=== PATIENT | male | born 1960 | race African-American/Black ===

== ENCOUNTER → 2016-05-22 | Outpatient (CLI) | payer OTHER | END | disposition home or self-care (01) | LOC: LAB 12:45 | PROVIDERS: ATTEND Internal Medicine Cardiovascular Disease | DX: I10 Essential (primary) hypertension (principal) | CPT/HCPCS: 36415; 82465; 86141 ==

== ENCOUNTER 2016-10-10 17:07 | Emergency (ER) | payer OTHER ==
[~2016-10-10] VITALS: Ht 180.3 cm; Wt 113.4 kg
[2016-10-10 17:08] VITALS: BP 78/47
[2016-10-10] MEDS ORDERED: GLUCAGON,HUMAN RECOMBINANT 1 MG/ML VIAL. IV ONE (17:30)
[2016-10-10] MEDS ORDERED: IV NORMAL SALINE 1000ML BAG 1,000 ML IV ONE (17:30)
[2016-10-10 17:50] LABS: BASO % 1 % (0-3); EOS % 4 % (0-3); HEMATOCRIT 44.8 % (39.0-53.0); HEMOGLOBIN 14.5 g/dL (13.0-17.5); LYMPH # 1.8 x10^3/uL (1.0-4.8); LYMPH % 25 % (24-48); MEAN CORPUSCULAR HEMOGLOBIN 29 pg (25-35); MEAN CORPUSCULAR HGB CONC 32 g/dL (31-37); MEAN CORPUSCULAR VOLUME 89 fL (79-100); MONO % 13 % (0-9); NEUT % 57 % (31-73); PLATELET COUNT 193 x10^3/uL (140-400); RED BLOOD COUNT 5.06 x10^6/uL (4.30-5.70); RED CELL DISTRIBUTION WIDTH 14.3 % (11.5-14.5)
[2016-10-10 17:53] LABS: INR 1.1 (0.8-1.1); PROTHROMBIN TIME PATIENT 13.8 SEC (11.7-14.0)
[2016-10-10 17:59] LABS: CALCIUM 9.3 mg/dL (8.5-10.1); GFR 42.3
[2016-10-10 18:04] LABS: ALBUMIN 3.6 g/dL (3.4-5.0); ALBUMIN/GLOBULIN RATIO 0.8 (1.0-1.7); TOTAL PROTEIN 8.2 g/dL (6.4-8.2)
[2016-10-10 18:06] LABS: ETHANOL < 10 mg/dL (0-10)
--- NOTE | 2016-10-10 18:30 | RAD ---
Indication: Headache. Axial imaging through the brain was performed without contrast One or more of the following individualized dose reduction techniques were utilized for this examination: 1. Automated exposure control 2. Adjustment of the mA and/or kV according to patient size 3. Use of iterative reconstruction technique Comparison is made with prior head CT from 02/07/2010. The ventricles and sulci are within normal limits. No sulcal effacement, midline shift or hemorrhage is detected. The cisterns are patent. The visualized paranasal sinuses are clear. IMPRESSION: No acute intracranial process is detected. Electronically signed by: Danie Das MD (10/10/2016 6:27 PM)
[2016-10-10] MEDS ORDERED: IV NORMAL SALINE 1000ML BAG 1,000 ML IV SCH (19:13)
[2016-10-10] MEDS ORDERED: ONDANSETRON PF 4 MG/2 ML VIAL. IV PRN (19:15)
[2016-10-10] MEDS ORDERED: MORPHINE SULFATE 2 MG/ML DISP.SYRIN. IV PRN (19:15)
[2016-10-10] MEDS ORDERED: ACETAMINOPHEN 325 MG TABLET. PO PRN (19:15)
--- NOTE | 2016-10-10 20:51 | PHYS DOC ---
Past Medical History Past Medical History: Unknown Additional Past Medical Histor: pt is a poor historian Alcohol Use: Occasionally Drug Use: Cocaine Adult General Chief Complaint Chief Complaint: HYPOTENSION HPI HPI Patient is a 56 year old male who presents with altered mental status. The patient is a poor historian; the majority of his complaints are related to chronic numbness & tingling to left upper extremity for which he recently underwent imaging ordered by his PCP. However he has garbled speech and is more confused than usual. He states he didn't take any medications for 3 days and today doubled up on all his medications. Unsure exactly what medications he takes but he thinks he is on carvedilol. He believes that he expresses syncopal episode at home. Denies headache, chest pain, palpitations, shortness of breath , abdominal pain, vomiting, extremity weakness. Review of Systems Review of Systems Constitutional: Denies fever or chills, reports syncope. Eyes: Denies change in visual acuity HENT: Denies nasal congestion or sore throat Respiratory: Denies cough or shortness of breath Cardiovascular: Denies chest pain or edema GI: Denies abdominal pain, nausea, vomiting, bloody stools or diarrhea : Denies dysuria or hematuria Musculoskeletal: Denies back pain or joint pain Integument: Denies rash or skin lesions Neurologic: Denies headache, reports chronic numbness/tingling to LUE Current Medications Current Medications Current Medications Medications (Trade) Dose Ordered Sig/Nickolas Start Time Stop Time Status Last Admin Dose Admin Acetaminophen (Tylenol) 650 mg PRN Q4HRS PRN 10/10/16 19:15 10/11/16 19:14 Glucagon (Glucagen) 5 mg 1X ONCE 10/10/16 17:30 10/10/16 17:31 DC Morphine Sulfate 2 mg PRN Q2HR PRN 10/10/16 19:15 10/11/16 19:14 Ondansetron HCl (Zofran) 4 mg PRN Q8HRS PRN 10/10/16 19:15 10/11/16 19:14 Sodium Chloride 1,000 ml @ 125 mls/hr Q8H 10/10/16 19:13 10/11/16 19:12 Allergies Allergies Allergies Coded Allergies Type Severity Reaction Last Updated Verified Unable to Assess 10/10/16 No Physical Exam Physical Exam Constitutional: obese, no acute distress, non-toxic appearance. HENT: Normocephalic, atraumatic, bilateral external ears normal, oropharynx moist, nose normal. Eyes: PERRLA, EOMI, conjunctiva normal, no discharge. Neck: supple, no stridor. no midline c-spine tenderness, no nuchal rigidity. Cardiovascular: RRR, no murmurs, no edema. Lungs & Thorax: LCTAB, no wheezing, no respiratory distress. Abdomen: soft, nontender, nondistended. Skin: Warm, dry, no erythema, no rash. Back: No spinal tenderness or step offs, no CVA tenderness Extremities: No tenderness, no edema. Neurologic: Alert and oriented X 3, speech is garbled & rambling but generally appropriate responses, CN2-12 grossly intact, symmetric strength/sensation to UE & LE with exception of decreased sensation to light touch to the LUE, poor effort with all neuro exam, no focal deficits noted. Psychologic: Affect normal, judgement normal, mood normal. Current Patient Data Vital Signs Vital Signs Date Time Temp Pulse Resp B/P (MAP) Pulse Ox O2 Delivery O2 Flow Rate FiO2 10/10/16 17:08 98.4 64 18 78/47 (57) 94 Room Air 98.4 Lab Values Laboratory Tests Test 10/10/16 17:20 10/10/16 18:27 White Blood Count 7.0 x10^3/uL (4.0-11.0) Red Blood Count 5.06 x10^6/uL (4.30-5.70) Hemoglobin 14.5 g/dL (13.0-17.5) Hematocrit 44.8 % (39.0-53.0) Mean Corpuscular Volume 89 fL (79-100) Mean Corpuscular Hemoglobin 29 pg (25-35) Mean Corpuscular Hemoglobin Concent 32 g/dL (31-37) Red Cell Distribution Width 14.3 % (11.5-14.5) Platelet Count 193 x10^3/uL (140-400) Neutrophils (%) (Auto) 57 % (31-73) Lymphocytes (%) (Auto) 25 % (24-48) Monocytes (%) (Auto) 13 % (0-9) H Eosinophils (%) (Auto) 4 % (0-3) H Basophils (%) (Auto) 1 % (0-3) Neutrophils # (Auto) 4.0 x10^3uL (1.8-7.7) Lymphocytes # (Auto) 1.8 x10^3/uL (1.0-4.8) Monocytes # (Auto) 0.9 x10^3/uL (0.0-1.1) Eosinophils # (Auto) 0.3 x10^3/uL (0.0-0.7) Basophils # (Auto) 0.0 x10^3/uL (0.0-0.2) Prothrombin Time 13.8 SEC (11.7-14.0) Prothrombin Time INR 1.1 (0.8-1.1) PTT 26 SEC (24-38) Sodium Level 138 mmol/L (136-145) Potassium Level 4.0 mmol/L (3.5-5.1) Chloride Level 101 mmol/L (98-107) Carbon Dioxide Level 29 mmol/L (21-32) Anion Gap 8 (6-14) Blood Urea Nitrogen 16 mg/dL (8-26) Creatinine 2.0 mg/dL (0.7-1.3) H Estimated GFR (Cockcroft-Gault) 42.3 BUN/Creatinine Ratio 8 (6-20) Glucose Level 136 mg/dL (70-99) H Lactic Acid Level 2.1 mmol/L (0.4-2.0) H Calcium Level 9.3 mg/dL (8.5-10.1) Total Bilirubin 1.0 mg/dL (0.2-1.0) Aspartate Amino Transferase (AST) 27 U/L (15-37) Alanine Aminotransferase (ALT) 27 U/L (16-63) Alkaline Phosphatase 70 U/L (46-116) Troponin I Quantitative 0.035 ng/mL (0.000-0.055) YE-Anj-J-Type Natriuretic Peptide 160 pg/mL (0-124) H Total Protein 8.2 g/dL (6.4-8.2) Albumin 3.6 g/dL (3.4-5.0) Albumin/Globulin Ratio 0.8 (1.0-1.7) L Lipase 106 U/L (73-393) Thyroid Stimulating Hormone (TSH) 2.323 uIU/mL (0.358-3.74) Salicylates Level < 2.8 mg/dL (2.8-20.0) L Salicylate Last Dose Date Salicylate Last Dose Time Acetaminophen Level < 2 mcg/ml (10-30) L Acetaminophen Last Dose Date Acetaminophen Last Dose Time Ethyl Alcohol Level < 10 mg/dL (0-10) Glucose (Fingerstick) 102 mg/dL (70-99) H Laboratory Tests 10/10/16 17:20 Laboratory Tests 10/10/16 17:20 EKG EKG interpreted by me: NSR rate 61, no ST elevation, T waves inverted without depression in leads 1, 2, aVL, aVF, V4-V5, [place] interval prolonged 262 ms, no ectopy.[] Radiology/Procedures Radiology/Procedures PROCEDURE: CT HEAD WO CONTRAST Indication: Headache. Axial imaging through the brain was performed without contrast One or more of the following individualized dose reduction techniques were utilized for this examination: 1. Automated exposure control 2. Adjustment of the mA and/or kV according to patient size 3. Use of iterative reconstruction technique Comparison is made with prior head CT from 02/07/2010. The ventricles and sulci are within normal limits. No sulcal effacement, midline shift or hemorrhage is detected. The cisterns are patent. The visualized paranasal sinuses are clear. IMPRESSION: No acute intracranial process is detected. Electronically signed by: Danie Das MD (10/10/2016 6:27 PM) DICTATED and SIGNED BY: DANIE DAS MD DATE: 10/10/16 1826 CXR: interpreted by me: cardiomegaly, no infiltrate, no pneumothorax.[] Course & Med Decision Making Course & Med Decision Making Pertinent Labs and Imaging studies reviewed. (See chart for details) The patient presents with altered mental status, found to be hypotensive when EMS arrived. Gave IV fluids here and his blood pressure improved. Initially there was some concern of a palomo overdose and I ordered glucagon but it had not been given because it had to be sent up from the pharmacy. His blood pressure improved to 100s/60s just with fluids and glucagon was not administered. Obtained labs, EKG, chest x-ray, head CT. No acute abnormalities were identified but I was concerned about his hypotension with possible occult infection or overdose. Recommended admission to the hospital for further evaluation and treatment. Initially the patient agreed but then he decided he needed to attend to some tasks at home and didn't want to be admitted. I did think he was confused but he was able to answer all questions appropriately and had a plan to get home with a family member who was driving up to the hospital. I did not have any reason to keep him against his wishes even though I strongly recommended that he stay for further evaluation. We discussed risks of leaving which include worsening condition, undiagnosed condition, possibly . He voiced understanding and still preferred to sign out AGAINST MEDICAL ADVICE. I had arty discussed with Dr. Boss who agreed to admit to inpatient status. I updated him that the patient was leaving AGAINST MEDICAL ADVICE. He was in stable condition at time of departure from the emergency department. [] Dragon Disclaimer Dragon Disclaimer This electronic medical record was generated, in whole or in part, using a voice recognition dictation system. Departure Departure Impression: Primary Impression: Hypotension Additional Impressions: Altered mental status Slurred speech Lactic acidosis Disposition: 07 AGAINST MEDICAL ADVICE Condition: STABLE Problem Qualifiers WILLIAM ANG MD Oct 10, 2016 20:51
--- NOTE | 2016-10-11 07:53 | RAD ---
Indication: Hypotensive. Time of exam 1748 hours. Comparison is made with prior chest from 02/07/2010. The heart appears mildly enlarged but stable. No infiltrate or failure is seen. No effusion or pneumothorax is identified. Impression: Stable chest. No acute feature is detected.
--- NOTE | 2016-10-11 11:30 | EKG ---
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
== END 2016-10-10 19:38 | disposition left against medical advice (07) ==
LOC: ER 17:07
DX: R41.82 Altered mental status, unspecified (principal); R47.81 Slurred speech; E87.2 Acidosis; R41.0 Disorientation, unspecified; R20.0 Anesthesia of skin; I95.9 Hypotension, unspecified; F14.10 Cocaine abuse, uncomplicated
CPT/HCPCS: 36415; 70450; 71010; 80053; 80320; 82962; 83605; 83690; 83880; 84443; 84484; 85027; 85610; 85730; 87040; 87205; 93005; 96360; 99285; G0480; J7030; 80329

== ENCOUNTER 2016-10-12 15:04 | Emergency (ER) | payer OTHER ==
[~2016-10-12] VITALS: Ht 172.7 cm; Wt 154.2 kg
[2016-10-12 15:46] LABS: BASO # 0.1 x10^3/uL (0.0-0.2); BASO % 1 % (0-3); EOS % 6 % (0-3); HEMATOCRIT 46.5 % (39.0-53.0); LYMPH # 1.7 x10^3/uL (1.0-4.8); LYMPH % 27 % (24-48); MEAN CORPUSCULAR HEMOGLOBIN 29 pg (25-35); MEAN CORPUSCULAR HGB CONC 32 g/dL (31-37); MEAN CORPUSCULAR VOLUME 89 fL (79-100); MONO % 12 % (0-9); NEUT % 55 % (31-73); PLATELET COUNT 191 x10^3/uL (140-400); RED BLOOD COUNT 5.23 x10^6/uL (4.30-5.70); RED CELL DISTRIBUTION WIDTH 14.8 % (11.5-14.5); WHITE BLOOD COUNT 6.4 x10^3/uL (4.0-11.0)
--- NOTE | 2016-10-12 15:49 | PHYS DOC ---
Past Medical History Past Medical History: High Cholesterol, Hypertension, Unknown Additional Past Medical Histor: borderline diabetic Past Surgical History: Other Additional Past Surgical Histo: neck surgery Additional Information: 05/13 ppd Alcohol Use: Occasionally Drug Use: Cocaine Adult General Chief Complaint Chief Complaint: ABNORMAL LABS [facility] Patient is a 56 year old male presenting to the emergency department for evaluation of abnormal labs that were drawn 2 days ago. Patient was being seen for hypotension diaphoresis and syncope. He was quite hypotensive Wednesday but was given fluids and evaluated and patient was recommended to be admitted to the hospital but he signed out against medical advise. Yesterday blood cultures came back positive in 2 for sats he had gram-negative rods and he was called and told to come back to the emergency department. Patient did not come to the emergency department yesterday as he said that he had to take care of his dogs. Patient is returning today and says that he feels well with no pain shortness of breath cough dysuria or rash. He says that he has not been taking any of his medications which she does not know what any of them are but he says that he does take a large amount of medications but has skipped as he thinks he may have taken too much 2 days ago. He says that his primary care provider is Dr. Cabezas. He is in no obvious distress with normal vital signs. Review of Systems Review of Systems Constitutional: Denies fever or chills [] Eyes: Denies change in visual acuity, redness, or eye pain [] HENT: Denies nasal congestion or sore throat [] Respiratory: Denies cough or shortness of breath [] Cardiovascular: No additional information not addressed in [facility] [] GI: Denies abdominal pain, nausea, vomiting, bloody stools or diarrhea [] : Denies dysuria or hematuria [] Musculoskeletal: Denies back pain or joint pain [] Integument: Denies rash or skin lesions [] Neurologic: Denies headache, focal weakness or sensory changes [] Allergies Allergies Allergies Coded Allergies Type Severity Reaction Last Updated Verified Unable to Assess 10/10/16 No Physical Exam Physical Exam Constitutional: Well developed, well nourished, no acute distress, non-toxic appearance. [] HENT: Normocephalic, atraumatic, bilateral external ears normal, oropharynx moist, no oral exudates, nose normal. [] Eyes: PERRLA, EOMI, conjunctiva normal, no discharge. [] Neck: Normal range of motion, no tenderness, supple, no stridor. [] Cardiovascular:Heart rate regular rhythm, no murmur [] Lungs & Thorax: Bilateral breath sounds clear to auscultation [] Abdomen: Bowel sounds normal, soft, no tenderness, no masses, no pulsatile masses. [] Skin: Warm, dry, no erythema, no rash. [] Back: No tenderness, no CVA tenderness. [] Extremities: No tenderness, no cyanosis, no clubbing, ROM intact, no edema. [] Neurologic: Alert and oriented X 3, normal motor function, normal sensory function, no focal deficits noted. [] Current Patient Data Vital Signs Vital Signs Date Time Temp Pulse Resp B/P (MAP) Pulse Ox O2 Delivery O2 Flow Rate FiO2 10/12/16 15:18 98.8 84 16 146/67 (93) 94 98.8 Lab Values Laboratory Tests Test 10/12/16 15:35 10/12/16 15:45 White Blood Count 6.4 x10^3/uL (4.0-11.0) Red Blood Count 5.23 x10^6/uL (4.30-5.70) Hemoglobin 15.0 g/dL (13.0-17.5) Hematocrit 46.5 % (39.0-53.0) Mean Corpuscular Volume 89 fL (79-100) Mean Corpuscular Hemoglobin 29 pg (25-35) Mean Corpuscular Hemoglobin Concent 32 g/dL (31-37) Red Cell Distribution Width 14.8 % (11.5-14.5) H Platelet Count 191 x10^3/uL (140-400) Neutrophils (%) (Auto) 55 % (31-73) Lymphocytes (%) (Auto) 27 % (24-48) Monocytes (%) (Auto) 12 % (0-9) H Eosinophils (%) (Auto) 6 % (0-3) H Basophils (%) (Auto) 1 % (0-3) Neutrophils # (Auto) 3.5 x10^3uL (1.8-7.7) Lymphocytes # (Auto) 1.7 x10^3/uL (1.0-4.8) Monocytes # (Auto) 0.7 x10^3/uL (0.0-1.1) Eosinophils # (Auto) 0.4 x10^3/uL (0.0-0.7) Basophils # (Auto) 0.1 x10^3/uL (0.0-0.2) Prothrombin Time 13.2 SEC (11.7-14.0) Prothrombin Time INR 1.1 (0.8-1.1) PTT 38 SEC (24-38) Sodium Level 143 mmol/L (136-145) Potassium Level 4.1 mmol/L (3.5-5.1) Chloride Level 108 mmol/L (98-107) H Carbon Dioxide Level 30 mmol/L (21-32) Anion Gap 5 (6-14) L Blood Urea Nitrogen 16 mg/dL (8-26) Creatinine 1.2 mg/dL (0.7-1.3) Estimated GFR (Cockcroft-Gault) 76.3 BUN/Creatinine Ratio 13 (6-20) Glucose Level 156 mg/dL (70-99) H Lactic Acid Level 1.4 mmol/L (0.4-2.0) Calcium Level 9.0 mg/dL (8.5-10.1) Magnesium Level 2.0 mg/dL (1.8-2.4) Total Bilirubin 0.3 mg/dL (0.2-1.0) Aspartate Amino Transferase (AST) 24 U/L (15-37) Alanine Aminotransferase (ALT) 27 U/L (16-63) Alkaline Phosphatase 65 U/L (46-116) Troponin I Quantitative 0.029 ng/mL (0.000-0.055) ED-Von-F-Type Natriuretic Peptide 131 pg/mL (0-124) H Total Protein 7.9 g/dL (6.4-8.2) Albumin 3.2 g/dL (3.4-5.0) L Albumin/Globulin Ratio 0.7 (1.0-1.7) L Lipase 151 U/L (73-393) Urine Collection Type Unknown Urine Color Yellow Urine Clarity Clear Urine pH 5.5 Urine Specific [place] 1.025 Urine Protein Negative mg/dL (NEG-TRACE) Urine Glucose (UA) 500 mg/dL (NEG) Urine Ketones (Stick) Negative mg/dL (NEG) Urine Blood Negative (NEG) Urine Nitrite Negative (NEG) Urine Bilirubin Negative (NEG) Urine Urobilinogen Dipstick 1.0 mg/dL (0.2 mg/dL) Urine Leukocyte Esterase Negative (NEG) Urine RBC 0 /HPF (0-2) Urine WBC 1-4 /HPF (0-4) Urine Squamous Epithelial Cells Few /LPF Urine Amorphous Sediment Present /HPF Urine Bacteria Few /HPF (0-FEW) Urine Hyaline Casts Few /HPF Urine Mucus Slight /LPF Urine Opiates Screen Neg (NEG) Urine Methadone Screen Neg (NEG) Urine Barbiturates Neg (NEG) Urine Phencyclidine Screen Neg (NEG) Urine Amphetamine/Methamphetamine Neg (NEG) Urine Benzodiazepines Screen Neg (NEG) Urine Cocaine Screen Pos (NEG) Urine Cannabinoids Screen Neg (NEG) Urine Ethyl Alcohol Neg (NEG) Laboratory Tests 10/12/16 15:35 Laboratory Tests 10/12/16 15:35 EKG EKG [] Radiology/Procedures Radiology/Procedures Portable chest, 10/12/2016: History: Fever Comparison is made to a study from 10/10/2016. The heart is at the upper limits of normal in size. The pulmonary vascularity is normal. No pulmonary infiltrate is seen. There is no evidence of pleural fluid. IMPRESSION: No acute cardiopulmonary abnormality is detected. DICTATED and SIGNED BY: FRANCIE LEGER MD DATE: 10/12/16 1002 Course & Med Decision Making Course & Med Decision Making Patient presenting to the emergency department for evaluation of abnormal blood culture results have her patient looks quite well with normal vital signs benign labs and he feels well and is wanting to go home. I tried on several occasions to get a hold of his PCP and/or someone who is covering for him however despite 2 hours of efforts were unsuccessful. I spoke to the hospitalist on-call and she stated that there is no indication to admit patient. I will give the patient a dose of IV Rocephin here and send him home on Levaquin and have him follow with his primary care provider tomorrow or the next day and have him come back to the ER sooner with any worsening symptoms. Patient aware and agreeable with plan for discharge and verbalized understanding of the need for short-term follow-up and strict ER return precautions discussed worsening pain fevers vomiting or other general concerns. Dragon Disclaimer Dragon Disclaimer This electronic medical record was generated, in whole or in part, using a voice recognition dictation system. Departure Departure Impression: Primary Impression: Bacteremia Disposition: 01 HOME, SELF-CARE Condition: GOOD Referrals: YANCI CABEZAS MD (PCP) Patient Instructions: Bacteremia Additional Instructions: Follow with her primary care provider within the next 48 hours and come back to the ER sooner with any worsening pain fevers vomiting or other general concerns. Scripts Levofloxacin (LEVAQUIN) 750 Mg Tablet 1 TAB PO DAILY, #5 TAB Prov: PHOEBE LAZARO DO 10/12/16 PHOEBE LAZARO DO Oct 12, 2016 15:49
[2016-10-12 15:55] LABS: BILIRUBIN,URINE NEGATIVE (NEG); GLUCOSE,URINE 500 mg/dL (NEG); NITRITE,URINE NEGATIVE (NEG); PH,URINE 5.5; PROTEIN,URINE NEGATIVE (NEG-TRACE)
--- NOTE | 2016-10-12 15:55 | RAD ---
Portable chest, 10/12/2016: History: Fever Comparison is made to a study from 10/10/2016. The heart is at the upper limits of normal in size. The pulmonary vascularity is normal. No pulmonary infiltrate is seen. There is no evidence of pleural fluid. IMPRESSION: No acute cardiopulmonary abnormality is detected.
[2016-10-12 16:04] LABS: INR 1.1 (0.8-1.1); PROTHROMBIN TIME PATIENT 13.2 SEC (11.7-14.0)
[2016-10-12 16:05] LABS: BARBITURATES NEG (NEG); BENZODIAZEPINES NEG (NEG); CANNABINOIDS NEG (NEG); COCAINE POS (NEG); METHADONE NEG (NEG); OPIATES NEG (NEG); PHENCYCLIDINE NEG (NEG)
[2016-10-12 16:17] LABS: CREATININE 1.2 mg/dL (0.7-1.3); GFR 76.3; POTASSIUM 4.1 mmol/L (3.5-5.1)
[2016-10-12 16:30] LABS: ALBUMIN 3.2 g/dL (3.4-5.0); ALBUMIN/GLOBULIN RATIO 0.7 (1.0-1.7); TOTAL BILIRUBIN 0.3 mg/dL (0.2-1.0); TOTAL PROTEIN 7.9 g/dL (6.4-8.2)
[2016-10-12 16:41] LABS: BACTERIA,URINE FEW /HPF (0-FEW); RBC,URINE 0 /HPF (0-2); SQUAMOUS EPITHELIAL CELL,UR FEW /LPF
[2016-10-12] MEDS ORDERED: LEVO750T31 PO (17:40)
[2016-10-12 18:11] VITALS: BP 167/79
== END 2016-10-12 18:35 | disposition home or self-care (01) ==
LOC: ER 15:04
DX: R78.81 Bacteremia (principal); I10 Essential (primary) hypertension; E78.00 Pure hypercholesterolemia, unspecified; F17.200 Nicotine dependence, unspecified, uncomplicated; F14.10 Cocaine abuse, uncomplicated
CPT/HCPCS: 36415; 71010; 80053; 80305; 80320; 81001; 83605; 83690; 83735; 83880; 84484; 85027; 85610; 85730; 87040; 96374; 99285; J0690; 96365; G0481